=== PATIENT | female | born 1975 | race Caucasian/White ===

== ENCOUNTER 2019-02-23 15:54 | Emergency (ER) | payer OTHER ==
[~2019-02-23] VITALS: Ht 182.9 cm; Wt 65.0 kg
[~2019-02-23 15:54] MED LIST: SUMA1TAB PO
--- NOTE | 2019-02-23 16:37 | NUR ---
ASSUMING CARE FOR PATIENT AT THIS TIME. REPORTED RECEIVED PER TRIAGE NOTE.
[2019-02-23 17:22] VITALS: BP 125/80
[2019-02-23 17:23] LABS: BASOPHILS # (AUTO) 0.01 x10^3/uL (0-0.1); BASOPHILS % (AUTO) 0 % (0-1); EOSINOPHILS % (AUTO) 0 % (1-7); LYMPHOCYTES # (AUTO) 0.84 x10^3/uL (1-3.4); LYMPHOCYTES % (AUTO) 7 % (22-44); MD NO; MEAN CORPUSCULAR HEMOGLOBIN 32.3 pg (27.0-34.8); MEAN CORPUSCULAR HGB CONC 33.6 g/dL (32.4-35.8); MEAN CORPUSCULAR VOLUME 96.1 fL (80-100); MEAN PLATELET VOLUME 7.9 fL (7.4-10.4); MONOCYTES # (AUTO) 0.18 x10^3/uL (0.2-0.8); MONOCYTES % (AUTO) 2 % (2-9); NEUTROPHILS # (AUTO) 11.14 x10^3/uL (1.8-6.8); NEUTROPHILS % (AUTO) 92 % (42-75); PLATELET COUNT 279 x10^3/uL (130-400); RED BLOOD COUNT 4.48 x10^6/uL (3.82-5.3); RED CELL DISTRIBUTION WIDTH 12.8 % (9.6-15.2)
--- NOTE | 2019-02-23 17:24 | NUR ---
PATIENT RESTING ON GURNEY WITH FAMILY AT BEDSIDE. VITAL SIGNS STABLE. CALL LIGHT IN REACH. DENIES FURTHER NEEDS AT THIS TIME.
[2019-02-23 17:40] LABS: ALBUMIN 4.4 g/dL (3.4-5.0); ANION GAP 6 mmol/L (5-15); CALCIUM 9.2 mg/dL (8.5-10.1); CHLORIDE 110 mmol/L (98-107); CREATININE 1.05 mg/dL (0.55-1.02)
[2019-02-23 17:43] LABS: TROPONIN I < 0.015 ng/mL (0.000-0.045)
== END 2019-02-23 19:19 | disposition home or self-care (01) ==
LOC: ED 16:57
DX: R07.89 Other chest pain (principal)
CPT/HCPCS: 36415; 71045; 80048; 82040; 84484; 85025; 93005; 99284